=== PATIENT | female | born 1985 | race African-American/Black ===

== ENCOUNTER 2018-11-29 09:04 | Emergency (ER) | payer MEDICAID ==
[~2018-11-29] VITALS: Ht 165.1 cm; Wt 55.0 kg
[2018-11-29 11:59] VITALS: BP 121/87
== END 2018-11-29 15:56 | disposition left against medical advice (07) ==
LOC: ER 09:04
DX: Z53.21 Procedure and treatment not carried out due to patient leaving prior to being seen by health care provider (principal)

== ENCOUNTER 2022-09-10 17:19 | Emergency (ER) | payer MEDICAID ==
[~2022-09-10] VITALS: Ht 167.6 cm; Wt 55.0 kg
[2022-09-10 17:26] VITALS: BP 100/70; PULSE 77; RESP 16; TEMP 98.1; O2SAT 100
[2022-09-10] MEDS ORDERED: ACETAMINOPHEN WITH CODEINE 300/30MG TABLET PO ONE (17:30)
[2022-09-10] MEDS ORDERED: IBUP-2028 PO (18:10)
[2022-09-10] MEDS ORDERED: T3 PO (18:10)
== END 2022-09-10 19:31 | disposition home or self-care (01) ==
LOC: ER 17:19
DX: S92.314A Nondisplaced fracture of first metatarsal bone, right foot, initial encounter for closed fracture (principal); F12.10 Cannabis abuse, uncomplicated; W18.39XA Other fall on same level, initial encounter; Y93.89 Activity, other specified; Y92.89 Other specified places as the place of occurrence of the external cause; Y99.8 Other external cause status
CPT/HCPCS: 81025; 73620; 99283; Z7610

== ENCOUNTER 2024-09-25 12:27 | Emergency (ER) | payer MEDICAID ==
[~2024-09-25] VITALS: Ht 167.6 cm; Wt 54.0 kg
[~2024-09-25 12:27] MED LIST: IBUP-2028 PO; T3 PO
[2024-09-25 12:32] VITALS: O2SAT 100
[2024-09-25] MEDS ORDERED: IBUP-2029 MT (14:37)
[2024-09-25] MEDS: IBUPROFEN 600MG TABLET PO ONE (14:45)
[2024-09-25 15:54] VITALS: BP 112/78; PULSE 72; RESP 20; TEMP 36.9; O2SAT 100
== END 2024-09-25 15:56 | disposition home or self-care (01) ==
LOC: ER 12:27
DX: S93.602A Unspecified sprain of left foot, initial encounter (principal); F10.90 Alcohol use, unspecified, uncomplicated; F12.90 Cannabis use, unspecified, uncomplicated; Z79.1 Long term (current) use of non-steroidal anti-inflammatories (NSAID); W45.0XXA Nail entering through skin, initial encounter; Y93.01 Activity, walking, marching and hiking; Y92.89 Other specified places as the place of occurrence of the external cause; Y99.8 Other external cause status; Y90.9 Presence of alcohol in blood, level not specified
CPT/HCPCS: 99283; 73630; A6449